=== PATIENT | male | born 1960 | race African-American/Black ===

== ENCOUNTER → 2016-12-07 | Outpatient (CLI) | payer BC ==
[~2016-12-07] MED LIST: SUCR1TAB20 PO
--- NOTE | 2016-12-07 10:12 | HPPDOC ---
HARSHA STOCK SPIRITUAL COUNSELOR 12/07/16 0957: HPI - Adult Date DATE: 12/07/16 TIME: 09:43 General Date of Admission Date of Admission: 12/07/16 Chief Complaint: Abnormal finding on diagnostic imaging History of Present Illness Mr. Ferrera is a 55 year old male that has a recent history of an abnormal echo. AVI scheduled today so results can be ready for patient next OV. He also has history of nonrheumatic aortic valve insufficiency, severe aortic stenosis, and heavy tobacco use. Past Medical History Current Medications Home Meds Active Scripts Sucralfate (Carafate) 1 Gm Tablet, 1 G PO ACHS for 10 Days, TAB Take 1 tablet, by mouth, 4 times a day (Before EACH meal and at BEDTIME). Prov:HOMERO CROW MD 10/21/15 Reported Medications [None] No Conflict Check 10/21/15 Allergies: Coded Allergies: No Known Allergies (Unverified , 10/21/15) Vaccines Social History Smoking Status: Current every day smoker Does patient use chewing tobac: No Second Hand Exposure: No Substance Use Type: does not use Alcohol Intake: none Physical Exam General Height (Feet): 5 Height (Inches): 8 Neurologic RN Documented GCS Eye Opening: Verbal: Motor: Total: Assessment & Plan Problems: (1) Abnormal findings on diagnostic imaging of heart and coronary circulation Status: Acute Assessment & Plan: Recent echo abnormal. AVI to be done before next visit. (2) Nonrheumatic aortic (valve) insufficiency Status: Chronic Assessment & Plan: Severe aortic stenosis per recent echo. AVI done today. (3) Cigarette nicotine dependence, uncomplicated Status: Chronic Assessment & Plan: Patient was instructed on tobacco cessation. Code Status Full Code Hospital Course Summary Disclaimer The hospital course summary below is not to be considered part of the above Progress Note. KITTY ROBLES MD 12/10/16 1712: Past Medical History Current Medications Home Meds Active Scripts Sucralfate (Carafate) 1 Gm Tablet, 1 G PO ACHS for 10 Days, TAB Take 1 tablet, by mouth, 4 times a day (Before EACH meal and at BEDTIME). Prov:HOMERO CROW MD 10/21/15 Reported Medications [None] No Conflict Check 10/21/15 Allergies: Coded Allergies: No Known Allergies (Unverified , 10/21/15) Assessment & Plan Hospital Course Summary Hospital Course Summary After examining the patient I agree with the above assessment. I am involved in the formulation of the patient's plan of care. HARSHA STOCK APRN Dec 07, 2016 09:57 KITTY ROBLES MD Dec 10, 2016 17:12
--- NOTE | 2016-12-07 11:00 | NUR ---
CONTACT ATTEMPT Pt SCHEDULED TO BE ADMITTED AT 1100 FOR 1300 AVI; Pt NOT HERE AT THIS TIME. CONTACT ATTEMPTED PER CELL PHONE NUMBER LISTED ON CHART/EMR; MESSAGE STATES PHONE IS OUT OF SERVICE. Pt'S RICK. LISTED CONTACT, SO CONTACTED HER AND SHE STATES SHE TALKED TO Pt THIS AM, BUT DID NOT KNOW WHAT TIME HE WAS PLANNING ON COMING IN. SHE STATES SHE IS IN [place] AND Pt IS IN [place]. SHE WAS UNABLE TO GIVE A GOOD PHONE NUMBER AT WHICH TO REACH THE Pt. DR ROBLES'S OFFICE CONTACTED AND THEY STATED THAT THEY DO NOT HAVE A DIFFERENT PHONE NUMBER FOR Pt; THEY ALSO STATE THAT DR ROBLES'S NURSE TOLD THE Pt TO COME AN HOUR EARLIER THAN PROCEDURE TO BE ADMITTED, WHICH WOULD BE 1200. NO FURTHER CONTACT ATTEMPTED AT THIS TIME.
--- NOTE | 2016-12-07 12:00 | NUR ---
CONTACT ATTEMPT #2 CONTACT VIA Pt'S CELL PHONE NUMBER ATTEMPTED AGAIN AT THIS TIME; OUT OF SERVICE MESSAGE RECEIVED.
--- NOTE | 2016-12-07 13:19 | NUR ---
SDET THIS RN NOTIFIED Jona MELENDEZ RN, THAT Pt HAS NOT SHOWED UP FOR AVI AT THIS TIME. UNABLE TO REACH Pt BY PHONE. SHE STATES THAT IF Pt SHOWS UP AND HAS NOT EATEN, THEY MAY BE ABLE TO FIT HIM IN. WILL NOTIFY SDET IF Pt SHOWS UP.
== END ==
LOC: IMA 08:00
PROVIDERS: ATTEND Internal Medicine Cardiovascular Disease
DX: Z53.20 Procedure and treatment not carried out because of patient's decision for unspecified reasons (principal)